=== PATIENT | male | born 1970 | race Caucasian/White ===

== ENCOUNTER 2024-01-16 13:52 | Inpatient (IN) | payer OTHER ==
[2024-01-16 14:50] VITALS: BMI 31.8
[2024-01-16] MEDS ORDERED: ONDANSETRON *ODT* 4 MG TABLET SL PRN (15:35)
[2024-01-16] MEDS ORDERED: BENZOCAINE/MENTHOL (CHLORASEPTIC ) LOZENGE MM PRN (15:35)
[2024-01-16] MEDS ORDERED: BISMUTH SUBSALICYLATE 524 MG/30 ML PO PRN (15:35)
[2024-01-16] MEDS ORDERED: MAG HYDROX/AL HYDROX/SIMETH 30 ML UNIT-DOSE CUP PO PRN (15:35)
[2024-01-16] MEDS ORDERED: DICYCLOMINE HCL 10 MG CAPSULE PO PRN (15:35)
[2024-01-16] MEDS ORDERED: ACETAMINOPHEN 325 MG TABLET (FP) PO PRN (15:35)
[2024-01-16] MEDS ORDERED: LOPERAMIDE HCL 2 MG CAPSULE PO PRN (15:35)
[2024-01-16] MEDS ORDERED: hydrOXYzine PAMOATE 25 MG CAPSULE (FP) PO PRN (15:35)
[2024-01-16] MEDS ORDERED: IBUPROFEN 600 MG TABLET (FP) PO PRN (15:35)
[2024-01-16] MEDS ORDERED: IBUPROFEN 400 MG TABLET (FP) PO PRN (15:35)
[2024-01-16] MEDS ORDERED: MAGNESIUM HYDROX 2400MG/30ML ORAL SUSPENSION 30 ML CUP PO PRN (15:35)
[2024-01-16] MEDS ORDERED: NALOXONE HCL 0.4 MG/ML VIAL IM PRN (15:35)
[2024-01-16] MEDS ORDERED: POLYETHYLENE GLYCOL (HEALTHYLAX) 3350 17 GM PACKET PO PRN (15:35)
[2024-01-16] MEDS ORDERED: BENZONATATE 200 MG CAPSULE PO PRN (15:35)
[2024-01-16] MEDS ORDERED: NALOXONE (NARCAN) HCL 4 MG/0.1 ML SPRAY NS PRN (15:35)
[2024-01-16] MEDS: NICOTINE 14 MG/24 HOURS TOPICAL PATCH TD SCH (19:13)
[2024-01-16] MEDS: PRENATAL VITAMINS W/ FOLIC ACID TABLET (FP) PO SCH (19:13)
[2024-01-16] MEDS: ATORVASTATIN CA 40 MG TABLET (FP) PO SCH (22:17)
[2024-01-16] MEDS: THIAMINE 100 MG TABLET PO SCH (22:17)
[2024-01-16] MEDS: LORazepam 2 MG TABLET PO SCH (22:17)
[2024-01-16] MEDS: MELATONIN 5 MG TABLETS PO SCH (22:17)
[2024-01-17] MEDS: ASPIRIN COATED 81 MG TABLET.EC PO SCH (10:19)
[2024-01-17 11:38] LABS: HEMATOCRIT 39.3 % (35.4-49); HEMOGLOBIN 13.5 GM/dL (11.7-16.9); MCH 31.3 pg (25.7-33.7); MCHC 34.2 g/dl (32.0-35.9); MEAN CELL VOLUME 91.4 fl (80-96); MEAN PLT VOLUME 9.2 fl (7.5-11.1); PLATELET COUNT 198 10^3/uL (134-434); RDW 13.2 % (11.9-15.9); WHITE BLOOD COUNT 6.3 K/mm3 (4.0-10.0)
[2024-01-17 11:41] LABS: CHLORIDE 105 mmol/L (98-107); SODIUM 140 mmol/L (136-145)
[2024-01-17 11:43] LABS: ALBUMIN 3.3 g/dl (3.4-5.0); ANION GAP 11 mmol/L (4-13); BLOOD UREA NITROGEN 15.3 mg/dL (7-18); CALCIUM 8.4 mg/dL (8.5-10.1); CO2 25 mmol/L (21-32); GLUCOSE,RANDOM 229 mg/dL (74-106)
[2024-01-17 11:47] LABS: CREATININE 0.9 mg/dL (0.55-1.3); SGOT/AST 19 U/L (15-37); SGPT/ALT 26 U/L (13-61)
[2024-01-17 11:48] LABS: BILIRUBIN,TOTAL 0.7 mg/dL (0.2-1); TOT PROT 6.6 g/dl (6.4-8.2)
[2024-01-17 11:50] LABS: ALK PHOS 110 U/L (45-117)
[2024-01-17] MEDS: methaDONE HCL 40 MG DISPERSABLE TABLET PO SCH (12:14)
[2024-01-17] MEDS: amLODIPine BESYLATE 2.5 MG TABLET (FP) PO SCH (13:58)
[2024-01-18] MEDS: LORazepam 1 MG TABLET PO SCH (07:11)
[2024-01-18] MEDS: MECLIZINE HCL 12.5 MG TABLET PO PRN (07:16)
[2024-01-18] MEDS: LORazepam 1 MG TABLET PO PRN (08:09)
[2024-01-18] MEDS: guaiFENesin 600 MG TABLET.ER (FP) PO PRN (16:39)
[2024-01-18] MEDS: METHOCARBAMOL 500 MG TABLET PO PRN (16:39)
[2024-01-19] MEDS ORDERED: LORazepam 0.5 MG TABLET PO PRN
[2024-01-19] MEDS: LORazepam 0.5 MG TABLET PO SCH (05:18)
[2024-01-19] MEDS: methaDONE HCL 40 MG DISPERSABLE TABLET PO ONE (14:51)
[2024-01-19] MEDS: methaDONE HCL 10 MG TABLET PO ONE (14:54)
[2024-01-19] MEDS: cloNIDine HCL 0.1 MG TABLET PO PRN (17:06)
[2024-01-19 20:33] VITALS: TEMP 97.7
[2024-01-20] MEDS: LORazepam 0.5 MG TABLET PO ONE (05:22)
[2024-01-20 08:30] VITALS: BP 142/89; PULSE 72; RESP 18
[2024-01-20] MEDS: methaDONE HCL 40 MG DISPERSABLE TABLET PO ONE (09:18)
== END 2024-01-20 11:47 | disposition home or self-care (01) | DRG 773 ==
LOC: YASAS 13:52 → Y3N 17:06 → Y6N 01-17 12:35
PROVIDERS: ADMIT Allergy & Immunology; ATTEND Psychiatry & Neurology Pain Medicine
PROC: HZ2ZZZZ Detoxification Services for Substance Abuse Treatment (ICD-10-PCS; principal; 2024-01-16)
DX: F10.230 Alcohol dependence with withdrawal, uncomplicated (principal); F11.20 Opioid dependence, uncomplicated; F14.20 Cocaine dependence, uncomplicated; F17.210 Nicotine dependence, cigarettes, uncomplicated; E78.5 Hyperlipidemia, unspecified; I10 Essential (primary) hypertension; R73.9 Hyperglycemia, unspecified; I69.841 Monoplegia of lower limb following other cerebrovascular disease affecting right dominant side; Z86.19 Personal history of other infectious and parasitic diseases
CPT/HCPCS: 36415; 80053; 80305; 80307; 82962; 85027; 86780; 93005; 93010